=== PATIENT | male | born 1960 | race Caucasian/White ===

== ENCOUNTER 2018-08-13 18:13 | Emergency (ER) | payer OTHER ==
[2018-08-13] MEDS ORDERED: Metoclopramide 10 MG/2 ML SDV IVPUSH ONE (18:22)
--- NOTE | 2018-08-13 18:26 | EDM.PDOC ---
ED HPI GENERAL MEDICAL PROBLEM - General Chief Complaint: Gastrointestinal Problem Stated Complaint: [facility] Time Seen by Provider: 08/13/18 18:15 Source of Information: Reports: Patient History Limitations: Reports: No Limitations - History of Present Illness INITIAL COMMENTS - FREE TEXT/NARRATIVE: 58-year-old male presents to the ED by ambulance. He states he suddenly developed nausea dizziness and then had profuse vomiting. Emesis was mostly recently eaten pizza and bile salts. No blood. When paramedics arrived he was extremely diaphoretic. He had no complaints of chest pain seemed to be somewhat confused disoriented. No reports of seizure activity. Patient states that he does have some right flank pain along his right lateral scapula but no other pain in his abdomen. Longer feels nauseated. No previous abdominal surgery. Has an umbilical hernia that usually doesn't bother him. states he takes medication for high blood pressure. He has no allergies. Onset: Today Onset Date: 08/13/18 Onset Time: 18:00 Duration: Minutes:, Improving Location: Reports: Other (Profuse diaphoresis or showed a associated with profuse nausea vomiting. Denies headache at this time) Quality: Reports: Other (Severe diaphoresis) Severity: Moderate (Nausea and vomiting) Improves with: Reports: Other (Feels better after vomiting) Worsens with: Reports: None Context: Reports: Other (Spontaneous occurrence of nausea dizziness and spontaneous profuse vomiting after eating pizza for supper.). Denies: Activity , Exercise, Lifting, Sick Contact, Trauma Associated Symptoms: Reports: Diaphoresis, Loss of Appetite, Malaise, Nausea/ Vomiting (All of his clothing is soaked from diaphoresis.). Denies: Confusion, Chest Pain, Cough, cough w sputum, Fever/Chills, Headaches, Rash, Seizure ( Profuse nausea and vomiting of recently eaten pizza no blood), Shortness of Breath, Syncope, Weakness Treatments [employer] REPA[employer]ER: Reports: Other (see below) (Has taken no medications.) - Related Data Allergies Allergy/AdvReac Type Severity Reaction Status Date / Time No Known Allergies Allergy Verified 08/13/18 18:27 Home Meds: Home Meds Acetaminophen [Tylenol] 650 mg PO Q4H PRN #100 tablet 05/24/16 [Rx] Doxazosin [Cardura] 2 mg PO BEDTIME #60 tablet 05/24/16 [Rx] HCTZ/Triamterene [Maxzide 25-37.5 MG] 1 each PO DAILY #30 tablet 05/24/16 [Rx] Losartan [Cozaar] 50 mg PO BID #30 tablet 05/24/16 [Rx] Past Medical History Musculoskeletal History: Reports: Arthritis Psychiatric History: Reports: Addiction Other Psychiatric History: I smoke "weed" weekly, I drink about 2 beers a day Dermatologic History: Reports: Other (See Below) Other Dermatologic History: 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 Denies: Fever, Chills HEENT: Reports: No Symptoms, Glasses (Wears glasses for reading) Respiratory: Reports: No Symptoms Cardiovascular: Reports: Blood Pressure Problem, Lightheadedness. Denies: Dyspnea on Exertion, Edema (Headedness before he became acutely ill.), Orthopnea Endocrine: Reports: No Symptoms GI/Abdominal: Reports: Nausea, Vomiting (Use vomiting just prior to coming to the ED of recently eaten pizza and bile salts no blood). Denies: Abdominal Pain : Reports: Frequency, Other Musculoskeletal: Reports: Back Pain (Nocturia times 2K show problems with low back pain) Skin: Reports: Diaphoresis (Draining diaphoretic at the time the paramedics attend him soaking all of his clothing in sweat.) Neurological: Reports: Confusion (Seemed to be somewhat transiently confused about what is happened to him but), Dizziness ( his mentation came back quickly while in the ED.he remembers feeling very dizzy and lightheaded just prior to ) , Weakness. Denies: Headache (having profuse nausea and vomiting. ), Numbness, Syncope, Tingling, Trouble Speaking, Difficulty Walking Psychiatric: Reports: No Symptoms Hematologic/Lymphatic: Reports: No Symptoms Immunologic: Reports: No Symptoms ED EXAM, GI/ABD - Physical Exam Exam: See Below Exam Limited By: No Limitations General Appearance: Alert, Anxious, Moderate Distress, Other (He is closing is completely soaked with diaphoresis. He is cool and clammy to touch.) Eyes: Bilateral: Normal Appearance Throat/Mouth: Normal Inspection, Normal Lips, Normal Oropharynx, Other Head: Atraumatic (Has just vomited.), Normocephalic Neck: Normal Inspection, Supple, Non-Tender, Full Range of Motion. No: Lymphadenopathy (L), Lymphadenopathy (R) Respiratory/Chest: No Respiratory Distress, Lungs Clear, Normal Breath Sounds, No Accessory Muscle Use Cardiovascular: Normal Peripheral Pulses, Regular Rate, Rhythm, No Edema, No Gallop, No Murmur, No Rub GI/Abdominal Exam: Normal Bowel Sounds, Soft, Non-Tender, No Organomegaly, No Abnormal Bruit, No Mass, Other (Mall easily reducible umbilical hernia. He is mildly obese) Back Exam: Other (Him tenderness just lateral to the right scapula.) Extremities: Normal Inspection, Normal Range of Motion ( Palpation makes it worse), Non-Tender, No Pedal Edema Neurological: Alert, Oriented, CN II-XII Intact, Normal Cognition Psychiatric: Anxious Skin Exam: Cool, Diaphoretic, Other (Clammy.) EKG INTERPRETATION EKG Date: 08/13/18 Time: 18:13 Rhythm: NSR Rate (Beats/Min): 82 [place]: Normal P-Wave: Enlarged (Left atrial hypertrophy.) QRS: Other (Early R-wave transition suggestive of right ventricular hypertrophy versus septal hypertrophy pattern. Left ventricular hypertrophy pattern. Q-wave in lead [address].) [address]-T: Other QT: Normal EKG Interpretation Comments: Abnormal ECG Course - Vital Signs Last Recorded V/S: Last Vital Signs Temp 36.0 C 08/13/18 18:24 Pulse 75 08/13/18 18:24 Resp 16 08/13/18 18:24 BP 122/80 08/13/18 18:24 Pulse Ox 93 L 08/13/18 18:24 - Orders/Labs/Meds Orders: Active Orders 24 hr Category Date Time Status EKG Documentation Completion [RC] STAT Care 08/13/18 18:22 Active Chest 1V Frontal [CR] Stat Exams 08/13/18 18:22 Taken Head wo Cont [CT] Stat Exams 08/13/18 18:24 Taken Dextrose 5%-0.9% NaCl [Dextrose 5%-Normal Saline] 1,000 Med 08/13/18 18:30 Active ml IV ASDIRECTED Medication Orders Dextrose/Sodium Chloride (Dextrose 5%-Normal Saline) 1,000 mls @ 150 mls/hr IV ASDIRECTED JEANNETTE Last Admin: 08/13/18 18:33 Dose: 150 mls/hr Labs: Laboratory Tests 08/13/18 08/13/18 08/13/18 Range/Units 18:20 18:20 18:20 WBC 12.45 H (4.23-9.07) K/mm3 RBC 5.75 (4.63-6.08) M/mm3 Hgb 17.5 (13.7-17.5) gm/L Hct 51.1 H (40.1-51.0) % MCV 88.9 (79.0-92.2) fl MCH 30.4 (25.7-32.2) pg MCHC 34.2 (32.2-35.5) g/dl RDW Std Deviation 44.4 H (35.1-43.9) fL Plt Count 264 (163-337) K/mm3 MPV 9.6 (9.4-12.3) fl Neutrophils % (Manual) 64 H (40-60) % Band Neutrophils % 0 (0-10) % Lymphocytes % (Manual) 31 (20-40) % Atypical Lymphs % 0 % Monocytes % (Manual) 3 (2-10) % Eosinophils % (Manual) 1 (0.8-7.0) % Basophils % (Manual) 1 (0.2-1.2) Platelet Estimate Adequate RBC Morph Comment Normal D-Dimer, Quantitative 0.27 (0.19-0.50) mg/L Sodium 140 (136-145) mEq/L Potassium 3.4 L (3.5-5.1) mEq/L Chloride 102 (98-107) mEq/L Carbon Dioxide 25 (21-32) mEq/L Anion Gap 16.4 H (5-15) BUN 19 H (7-18) mg/dL Creatinine 1.3 (0.7-1.3) mg/dL Est Cr Clr Drug Dosing 64.36 mL/min Estimated GFR (MDRD) 56 (>60) mL/min BUN/Creatinine Ratio 14.6 (14-18) Glucose 138 H (74-106) mg/dL Calcium 9.3 (8.5-10.1) mg/dL Magnesium 2.4 (1.8-2.4) mg/dl Total Bilirubin 0.6 (0.2-1.0) mg/dL AST 24 (15-37) U/L ALT 50 (16-63) U/L Alkaline Phosphatase 49 (46-116) U/L CK-MB (CK-2) 2.1 (0-3.6) ng/ml Troponin I < 0.017 (0.00-0.056) ng/mL C-Reactive Protein < 0.2 (<1.0) mg/dL Total Protein 8.5 H (6.4-8.2) g/dl Albumin 4.3 (3.4-5.0) g/dl Globulin 4.2 gm/dL Albumin/Globulin Ratio 1.0 (1-2) Amylase 60 (25-115) U/L Meds: Medications Generic Name Dose Route Start Last Admin Trade Name Freq PRN Reason Stop Dose Admin Dextrose/Sodium Chloride 1,000 mls @ 150 mls/hr 08/13/18 18:30 08/13/18 18:33 Dextrose 5%-Normal Saline IV 150 mls/hr ASDIRECTED JEANNETTE Administration Discontinued Medications Generic Name Dose Route Start Last Admin Trade Name Freq PRN Reason Stop Dose Admin Metoclopramide HCl 10 mg 08/13/18 18:22 08/13/18 18:34 Reglan IVPUSH 08/13/18 18:23 10 mg ONETIME ONE Administration Ondansetron HCl 4 mg 08/13/18 20:43 08/13/18 20:48 Zofran Odt PO 08/13/18 20:44 4 mg ONETIME ONE Administration - Radiology Interpretation Free Text/Narrative:: 58-year-old male presents the ED per ambulance after sudden onset of development of severe nausea vomiting and diaphoresis at home. This was shortly after eating pizza for supper that he made. He states he suddenly became very dizzy lightheaded and then had prolific vomiting of pizza and bile salts. He was extremely diaphoretic when the paramedics arrived all his clothing was soaked. Is a little bit confused at the time of their arrival presumably due to low blood pressure. I suspect he had severe vagal tone. He in the ED he is alert oriented he's able to answer all questions he is mildly anxious. Denies any pain. Abdominal chest examination showed no abnormalities. ECG done shows evidence of likely right ventricular hypertrophy certainly septal hypertrophy and left ventricular hypertrophy pattern due to high blood pressure likely uncontrolled. No signs of acute ischemia. Routine labs including an amylase and a d-dimer as his O2 sats initially were only 93% but suspect was causes "clammy and not perfusing his periphery very well. CT head will be done to rule out a central nervous system bleed that could cause him to have spontaneous vomiting. One view chest x-ray as well. - Re-Assessments/Exams Free Text/Narrative Re-Assessment/Exam: 08/13/18 20:09 CT of the brain reveals a chronic lacunar infarct involving the right thalamus. There is a chronic lacunar infarct involving the posterior limb of the left internal capsule as well. There is age related involutional changes and chronic microvascular ischemic disease no evidence for acute transcortical infarct. No mass effect or midline shift no extra-axial collection no acute intracranial hemorrhage the basal cisterns are patent. Ventricles are normal sinuses mucosal thickening involving ethmoid air cells and sphenoid air cells to panel mastoid cavities are clear. Soft tissues were normal. Chest X-ray reveals moderate cardiomegaly. Lungs are clear. I had a discussion with the patient about the size was hard which he seemed to know about. Advised that he needs further investigations particularly of his internal carotid arteries and likely an MRI of his brain and soft tissues of the neck to see half he has a thing that we can fix to prevent a major stroke from occurring. His heart size is worrisome since he's always age 58 it appears that his blood pressure may not be under good control. He can't remember the last time he had an echocardiogram. Therefore devised and follow-up with his primary care physician in this regard 08/13/18 20:11 White count is 12.45 with 64% neutrophils and no bands. Hemoglobin is slightly elevated at 17.5 with hematocrit of 51.1 suggesting some degree of hemoconcentration. Platelets count is 20 64,000. D-dimer 0.27. Sodium 140 with a potassium slightly low at 3.4. Chloride 102 with a bicarbonate 25. Anion gap slightly elevated at 16.4. BUNs 19. Creatinine is 1.3. GFR is 56. Glucose 138. Calcium 9.3. Magnesium 2.4. Bilirubin 0.6. AST 24 with an AST of 50. Alkaline phosphatase stasis 49. CK-MB fraction is 2.1 with a troponin I of less than 0.017. C-reactive protein is less than 0.2. Total protein is elevated at 8.5 with an albumin fraction of 4.3 again indicating some degree of hemoconcentration. Amylase is normal at 60. 08/13/18 20:33 patient voided 400 mils. He is sitting at the bedside and feeling fine. He is drinking Gatorade this time. Plan Zofran 4 mg sublingual be given for mild nausea. Departure - Departure Time of Disposition: 20:52 Disposition: Home, Self-Care 01 Condition: Fair Clinical Impression: Nausea and vomiting Qualifiers: Vomiting Intractability: non-intractable - Discharge Information *PRESCRIPTION DRUG MONITORING PROGRAM REVIEWED*: Not Applicable *COPY OF PRESCRIPTION DRUG MONITORING REPORT IN PATIENT CEDRICK: Not Applicable Instructions: Nausea and Vomiting, Adult Referrals: PCP,None [Primary Care Provider] - Forms: ED Department Discharge Additional Instructions: Evaluation the emergency room today in regards to acute onset of nausea and vomiting shortly after eating homemade pizza. So she with marked diaphoresis and sweats due to vagal tone which is the cause of nausea vomiting reflex. This often can cause slowing of the heart rate dropping to the blood pressure and making you feel faint as well. Investigations were quite thorough through the emergency room today and no pathology was identified. CT of the head proved to be normal as well with no evidence of any intracranial pathology that would cause spontaneous nausea or vomiting. Reports unclear if you're going to go on to develop the stomach flu which may be associated with diarrhea within the next 12 hours as it is going around in the community. This time I would suggest sipping on a bit of Gatorade before bed and then going to bed and resting the stomach. No thing further to eat tonight. Follow-up with personal care physician or return to the ED if any further vomiting occurs. Zofran tablet under the tongue before he left the ED which usually lasts about 6 hours to prevent any further nausea or vomiting. - My Orders Last 24 Hours: My Active Orders 08/13/18 18:22 EKG Documentation Completion [RC] STAT Chest 1V Frontal [CR] Stat 08/13/18 18:24 Head wo Cont [CT] Stat 08/13/18 18:30 Dextrose 5%-0.9% NaCl [Dextrose 5%-Normal Saline] 1,000 ml IV ASDIRECTED - Assessment/Plan Last 24 Hours: My Active Orders 08/13/18 18:22 EKG Documentation Completion [RC] STAT Chest 1V Frontal [CR] Stat 08/13/18 18:24 Head wo Cont [CT] Stat 08/13/18 18:30 Dextrose 5%-0.9% NaCl [Dextrose 5%-Normal Saline] 1,000 ml IV ASDIRECTED
[2018-08-13 18:27] VITALS: BP 122/80
[2018-08-13] MEDS ORDERED: Dextrose 5%-0.9% NaCl 1,000 ML IV SCH (18:30)
[2018-08-13] MEDS ORDERED: Ondansetron 4 MG Tab.DIS PO ONE (20:43)
--- NOTE | 2018-08-14 06:38 | CT ---
Head CT Technique: Multiple axial sections through the brain were obtained. Intravenous contrast was not utilized. Comparison: Prior MRI brain dated 05/19/16 is available [address] head CT study of 08/15/09. Findings: Ventricles along with basal cisterns and sulci over the convexities are mildly prominent. Mild areas of diminished density are noted within the periventricular and subcortical white matter. Several old appearing lacunar infarcts are noted within the basal ganglia. No other abnormal parenchymal densities are seen. No evidence of intracranial hemorrhage. No midline shift or mass effect is seen. Bone window settings were reviewed which show mucosal thickening within the frontal and ethmoid sinuses with minimal mucosal thickening also seen within the sphenoid sinus. No acute bony abnormality is seen. Impression: 1. Sinus findings, uncertain if this is chronic or if there is superimposed acute change. 2. Mild senescent change as described above. 3. No acute intracranial abnormality is seen. Diagnostic code #3 I agree with preliminary report from [facility], finalized on 08/13/18, 8:45 PM Central Time
--- NOTE | 2018-08-14 06:38 | CR ---
Chest: Portable view of the chest was obtained. Comparison: No prior chest x-ray. Heart size is within normal limits for portable technique. Slight tortuosity of the thoracic aorta is seen. Lungs are clear. Bony structures are unremarkable. Impression: 1. Nothing acute is seen on portable chest x-ray. Diagnostic code #1
== END 2018-08-13 21:10 | disposition home or self-care (01) ==
LOC: JD.ED 18:13
DX: R11.2 Nausea with vomiting, unspecified (principal)
CPT/HCPCS: 36415; 70450; 71045; 80053; 82150; 82553; 83735; 84484; 85007; 85027; 85379; 86140; 93005; 96361; 96374; 99285; A9270; J2765; J7042; 99284